=== PATIENT | male | born 1975 | race Caucasian/White ===

== ENCOUNTER → 2016-06-23 | Outpatient (CLI) | payer OTHER ==
--- NOTE | 2016-06-24 06:42 | SPLIT NIGHT TECHNICIAN REPORT ---
[facility] Split Night Polysomnogram - Sprinkler Fitter Apprentice Report Study date: 06/23/2016 Referring Physician: Tony LYMAN M.D. Name: MILY SCHMIDT Sprinkler Fitter Apprentice: ADRIANNA Mccartney. Date of : 1975 Height: 40 years, Height 6' 1.5" Sex: Male Weight: 314 lbs Age: 40 BMI: Medications: 40.86 NONE LISTED Patient History 40 yr-old male here for a baseline/split study. He has a history of HTN, loud snoring, and excessive daytime sleepiness. The test was started on room air. Room 3 Parameters Monitored NPSG: E1-M2, E2-M1, Fp1-M2, Fp2-M1, F3-M2, F4-M2, F4-M1, C3-M2, C4-M2, C4-M1, O1-M2, O2-M2, O2-M1, T3-M2, T4-M1, P3-M2, P4-M1, CHIN1, CHIN2, HR, EKG, Legs, PFLOW, SNOR, FLOW, CFLOW, Tidal Volume, THOR, ABDO, SpO2, PLTH, CPRESS, ETCO2 Wave, ETCO2, pH SLEEP SUMMARY DATA DIAGNOSTIC TREATMENT Lights Out: 10:16:59 PM 1:21:29 AM Lights On: 12:42:29 AM 5:38:29 AM Total Recording Time (TRT): 145.5 min. 257.0 min. Total Sleep Time (TST): 127.0 min. 182.0 min. NREM Time: 125.5 min. 109.5 min. REM Time: 1.5 min. 72.5 min. Sleep Period Time (SPT): 135.5 min. 217.0 min. Sleep Efficiency (SE): 87 % 71 % Sleep Latency: 10.0 min. 38.5 min. Arousal Index: 73.7 8.2 PAP Treatment Levels: 4, 6, 7, 8, 9 * Optimal Pressure(s) SLEEP STAGING DATA DIAGNOSTIC TREATMENT Duration (min) TST % Duration (min) TST % Stage Wake: 18.5 min. -- 75.0 min. -- WASO: 8.5 min. -- 35.0 min. -- NREM: 125.5 min. 99 % 109.5 min. 60 % Stage N1: 64.0 min. 50 % 21.5 min. 12 % Stage N2: 61.5 min. 48 % 88.0 min. 48 % Stage N3: 0.0 min. 0 % 0.0 min. 0 % REM: 1.5 min. 1 % 72.5 min. 40 % POSITIONAL DATA Event Count Index Event Count Index Supine: N/A N/A 5 3.8 Supine NREM: N/A N/A 5 5.5 Supine REM: N/A N/A 0 0 Non-Supine: 216 101.6 18 8.1 Non-Supine NREM: 215 102.3 18 15.3 Non-Supine REM: 1 40.0 0 0.0 AROUSAL SUMMARY DATA: Event Count Index Event Count Index Apnea Arousals: 123 78.9 0 0.0 Hypopnea Arousals: 21 9.9 6 2.0 Snore Arousals: 6 2.8 11 3.6 PLM Arousals: 2 0.9 6 2.0 Non-Specific Arousals: 2 0.9 1 0.3 Total Arousals: 156 73.7 25 8.2 MYOCLONUS (PLM) Event Count Index Event Count Index PLM: 27 12.8 317 104.5 PLM AROUSAL: 2 0.9 6 2.0 PLM W/O AROUSAL 27 12.8 311 102.5 PLM W/RESP EVENT 7 0.0 5 0.0 MYOCLONUS (PLM) Event Count Index Event Count Index LM: 5 81.7 33 10.9 LM AROUSAL: 5 2.4 1 0.3 LM W/O AROUSAL LM W/RESP EVENT LM NON SPECIFIC 61 28.8 335 110.4 HEART RATE DATA DIAGNOSTIC TREATMENT Sleep (bpm): 96 93 REM (bpm): 72 90 NREM (bpm): 86 91 Tachycardia Count: 0 0 Tachycardia Duration: 0.00 0 Bradycardia Count: 0 0 Bradycardia Duration: 0.00 0 DIAGNOSTIC PORTION TREATMENT PORTION RESPIRATORY DATA Event Count Index Event Count Index AHI: -- 101.6 -- 6.3 RDI: -- 102.0 -- 8 Obstructive Apnea: 166 78.4 0 0.0 Central Apnea: 1 0.5 0 0.0 Mixed Apnea: 0 0.0 0 0.0 Hypopnea: 48 22.7 19 6.3 RERA: 1 0.5 4 1.3 Total Apneas: 167 78.9 0 0.0 RESPIRATORY DATA REM NREM SLEEP REM NREM SLEEP Supine Position: Obstructive Apneas: N/A N/A N/A 0 0 0 Central Apneas: N/A N/A N/A 0 0 0 Mixed Apneas: N/A N/A N/A 0 0 0 Hypopneas: N/A N/A N/A 0 5 5 RERA N/A N/A N/A 0 0 0 Total Supine Events: N/A N/A N/A 0 5 5 Supine AHI: N/A N/A N/A 0 5.5 3.8 Supine RDI: N/A N/A N/A 0.0 5.5 3.8 REM NREM SLEEP REM NREM SLEEP Non-Supine Position: Obstructive Apneas: 1 165 166 0 0 0 Central Apneas: 0 1 1 0 0 0 Mixed Apneas: 0 0 0 0 0 0 Hypopneas: 0 48 48 0 14 14 RERA 0 1 1 0 4 4 Total Supine Events: 1 215 216 0 18 18 Supine AHI: 40.0 102.3 101.6 0.0 15.3 8.1 Supine RDI: 40.0 102.8 102.0 0.0 19.6 10.4 OXYGEN DESTAURATION DATA: Event Count Index Event Count Index REM Desaturations: 1 40.0 0 0.0 NREM Desaturations: 200 95.6 29 15.9 SNORE DATA DIAGNOSTIC TREATMENT Snore Time: 33.9 1:59:59 AM Snore TST%: 15 7 Snore Arousal Count: 6 11 Snore Arousal Index: 2.8 3.6 Desaturation Event Summary: Minimum %SpO2 Event Count Mean/Min/Max Duration(sec.) Desaturation Index % Time In Bed > 90 228 23.6 / 5.5 / 60.0 62.0 55.2 86 - 90 82 22.4 / 5.5 / 54.3 40.0 30.8 81 - 85 8 25.9 / 6.8 / 44.5 16.5 7.3 76 - 80 3 25.9 / 13.5 / 41.8 11.8 3.8 71 - 75 0 N/A 0.0 1.7 66 - 70 0 N/A 0.0 0.8 61 - 65 0 N/A 0.0 0.3 56 - 60 0 N/A 0.0 0.0 51 - 55 0 N/A 0.0 0.0 < 50 0 N/A 0.0 0.0 OXYGEN SATURATION DATA DIAGNOSTIC TREATMENT SpO2 Mean Sleep: 86 % 91 % SpO2 Mean REM: 72 % 90 % SpO2 Mean NREM: 86 % 91 % SpO2 Minimum Sleep: 59 % 85 % SpO2 Minimum REM: 60 % 87 % SpO2 Minimum NREM: 59 % 85 % Time Below 90% (TST): 83.4 37.7 Time Below 88% (TST): 69.5 2.4 Total REM NREM Awake <50% 0.0 min. 0.0 min. 0.0 min. 0.0 min. 51 - 60% 0.2 min. 0.0 min. 0.1 min. 0.0 min. 61 - 70% 4.6 min. 0.7 min. 3.5 min. 0.5 min. 71 - 80% 22.1 min. 0.5 min. 21.3 min. 0.3 min. 81 - 90% 152.1 min. 41.5 min. 100.0 min. 10.6 min. 91 - 100% 220.5 min. 31.2 min. 107.6 min. 81.8 min. Average 90 90 88 93 Minimum SpO2 59 60 59 59 Desaturation Event Index 38.8 0.8 58.5 19.9 # Desat. Events below 89% 220 1 204 15 Time(%) with Saturation below 89% 22.7 1.2 20.3 1.2 Time(min.) with Saturation below 89% 90.5 4.6 81.2 4.7 Recording Sprinkler Fitter Apprentice Comments: Mr. Schmidt slept in the right and supine positions. Cardiac arrhythmias were noted (please refer to the printouts). PLMs were noted. No bruxism noted. Snoring was noted and scored as a 4 on a scale of 1 through 5. (0=no snoring, 5=snoring loud enough to be heard through a closed door or down the cotto way). At 12:42 am, he met specific Split-Night criteria during the diagnostic portion of this study. CPAP was initiated at +4 CMH2O and up-titrated to a level of +9 CMH2O, Cflex 2 which nearly eliminated all respiratory events and snoring. A Mirage FX Soft edge nasal mask size standard from [employer] was used during titration. He awoke to use the restroom one time during the night. Mr. Schmidt stated that he slept about the same as usual. The final report will be interpreted and signed by a sleep physician. The completed physician report will then be placed in the patient medical record. Therapy Event: Therapy (cm H20) 0 4 6 7 8 9 Total Time at Pressure (min.) 145.5 44.3 32.2 24.6 66.1 89.7 TST at Pressure (min.) 127.0 5.3 12.7 24.6 63.1 76.2 # Periods 1 1 1 1 1 1 Sleep Onset (min.) 10.0 38.5 0.0 0.0 0.0 0.0 REM Onset (min.) 114.5 N/A N/A N/A 2.8 51.7 Sleep Efficiency % 87 12 39 100 95 85 Wakefulness (%) 12.7 88.0 60.5 0.0 4.5 15.0 Wakefulness (min.) 18.5 39.0 19.5 0.0 3.0 13.5 NREM 1 (%) 44.0 12.0 25.3 0.0 7.6 3.3 NREM 1 (min.) 64.0 5.3 8.2 0.0 5.0 3.0 NREM 2 (%) 42.3 0.0 14.1 100.0 14.5 54.9 NREM 2 (min.) 61.5 0.0 4.6 24.6 9.6 49.2 NREM 3 (%) 0.0 0.0 0.0 0.0 0.0 0.0 NREM 3 (min.) 0.0 0.0 0.0 0.0 0.0 0.0 REM (%) 1.0 0.0 0.0 0.0 73.4 26.8 REM (min.) 1.5 0.0 0.0 0.0 48.5 24.0 # Arousals 156 5 7 1 8 4 Arousal Index 73.7 56.2 33.1 2.4 7.6 3.1 # Snore 916 24 65 221 176 15 Snore Index 432.8 269.5 306.9 538.1 167.4 11.8 AHI 101.6 67.4 37.8 0.0 2.9 1.6 AHI Supine N/A N/A 66.7 N/A N/A 0.0 AHI Non-Supine 101.6 67.4 21.9 0.0 2.9 54.4 NREM AHI 102.3 67.4 37.8 0.0 12.3 2.3 REM AHI 40.0 N/A N/A N/A 0.0 0.0 RDI 102.0 78.6 42.5 0.0 4.8 1.6 # Obstructive 166 0 0 0 0 0 # Central Ap 1 0 0 0 0 0 # Mixed 0 0 0 0 0 0 # Hypopneas 48 6 8 0 3 2 RERAS 1 1 1 0 2 0 Total Respiratory Events 216 7 9 0 5 2 Time Below SpO2 89.00% (min.) 76.2 0.6 3.3 2.6 3.1 0.0 Mean NREM SpO2 (%) 86 91 90 90 92 93 Mean REM SpO2 (%) 72 N/A N/A N/A 90 92 Mean Sleep SpO2 (%) 86 91 90 90 90 92 Min NREM SpO2 (%) 59 87 85 87 89 90 Min REM SpO2 (%) 60 N/A N/A N/A 87 90 Position Supine (min.) 0.0 0.0 4.5 0.0 0.0 74.0 Position Non-supine (min.) 127.0 5.3 8.2 24.6 63.1 2.2 LM Index Sleep 94.5 44.9 33.1 172.9 101.7 126.8 LM Index NREM 94.2 44.9 33.1 172.9 205.5 151.7 LM Index REM 120.0 N/A N/A N/A 70.5 72.5 Mean Heart Rate (bpm) 96 99 99 98 92 91 Min Heart Rate (bpm) 45 94 92 73 46 76
--- NOTE | 2016-07-03 07:48 | POLYSOMNOGRAPH REPORT ---
REFERRING PERSON: Dr. Catherine Rincon. ELEMENTARY SUBSTITUTE TEACHER: Trinidad Zheng. Mr. Schmidt is a 40-year-old male sent for a baseline split night sleep study. He has a history of hypertension, loud snoring and excessive daytime sleepiness. His Lucien Sleepiness Scale score on the evening of this study is not listed. BMI is 40.86. Following the technical and digital specifications of the [employer] (AASM) a standard diagnostic polysomnogram was performed monitoring EEG, EOG, EMG (chin and leg deviations), oxygen saturation, body position, digital video, respiratory effort and airflow. The sleep Stage and event scoring was based on the AASM Manual for the Scoring of Sleep and Associated Events 2007 edition. Apneas are defined as a drop in the peak thermal sensor excursion by >90% of baseline for at least 10 seconds. Hypopneas were scored using the 4% oxygen desaturation rule (4A-[employer]ic[employer]) and a decrease in the nasal pressure excursions by >30% of baseline for at least 10 seconds. Respiratory effort-related arousal (RERA's) is defined as a sequence of breaths lasting at least 10 seconds characterized by increasing respiratory effort or flattening of the nasal pressure waveform leading to an arousal from sleep when the sequence of breaths does not meet criteria for an apnea or hypopnea. Apnea Hypopnea index (AHI) is defined as the number of apneas and hypopneas occurring in an hour of sleep. Respiratory disturbance index (RDI) is defined as the number of apneas, hypopneas, and RERA's occurring in an hour of sleep. Mr. Schmidt' did in fact qualify for a split night sleep study. He was observed for 127 minutes of sleep. During that time, he had 50% N1 sleep, 48% N2 sleep, and 1% REM sleep. There were 156 cortical arousals from sleep. Two of these arousals were nonspecific, 2 were due to periodic limb movements of sleep, 6 due to snoring, and the remaining 144 arousals were due to respiratory events. There were 27 periodic limb movements, 2 of which resulted in arousals. Mean saturation during the diagnostic portion of this test was low at 86%. With the respiratory events, desaturations were noted to 59%. During the diagnostic portion of this study, he had 166 obstructive apneas, 1 central apnea and 0 mixed apneas. He had 48 hypopneas. Pretreatment AHI was 101.6 consistent with severe obstructive sleep apnea. Therefore, at 12:45 a.m., this patient was started on CPAP therapy. Over the remainder of the night using a Mirage FX nasal mask, Mr. Schmidt was titrated from a CPAP pressure of 4 to a CPAP pressure of 9. Increasing pressures were needed to prevent apneas, hypopneas and arousals. He was observed on a pressure of 9 for 76.2 minutes of sleep time. 24 of those minutes were spent in REM sleep. AHI and RDI on this pressure were both 1.6. There were no desaturations less than 89% on this pressure. All sleep time on this pressure was spent supine. IMPRESSION AND PLAN: Successful split night sleep study in this patient with very severe sleep apnea and nocturnal hypoxemia. 1. He appears to do well on CPAP at a pressure of 9. This seems to eliminate his apnea as well as his hypoxemia. He should be started on CPAP of 9 at home. A download from his machine should be reviewed in 1 month both to check compliance as well as apnea-hypopnea index and further pressure adjustments can occur at that time. ANAND
== END | disposition home or self-care (01) ==
LOC: C.NEUR 21:00
PROVIDERS: ATTEND Family Medicine
DX: E66.01 Morbid (severe) obesity due to excess calories (principal); R06.83 Snoring; Z86.79 Personal history of other diseases of the circulatory system

== ENCOUNTER → 2018-01-10 | Outpatient (CLI) | payer BC ==
--- NOTE | 2018-01-10 19:03 | DIAGNOSTIC IMAGING REPORT ---
MRI OF THE RIGHT ANKLE WITHOUT IV CONTRAST CLINICAL HISTORY: Achilles tendon injury. COMPARISON STUDY: No priors. TECHNIQUE: MRI of the right ankle is performed utilizing various T1 and T2-weighted sequences in the axial, sagittal, and coronal planes. IV contrast was not administered for this examination. Note that interpretation is suboptimal without plain film correlate. FINDINGS: The Achilles tendon appears thickened with abnormal signal consistent with partial-thickness tear. This is located deep to a cutaneous marker, and the tear is located approximately 2.5 cm above the calcaneal insertion. A screw track is suggested in the dorsal calcaneus. No full-thickness rupture is seen and there is no retraction. There is nonspecific edema deep to the tear within Kager's fat pad. There is trace fluid within the retrocalcaneal bursa. No osseous abnormality is identified in the ankle. There is no MRI evidence of fracture. No osteochondral defect is seen in the talar dome. The medial band of the plantar fascia appears slightly thickened and there is minimal surrounding edema suggesting mild plantar fasciitis. The peroneus longus tendon appears thickened with abnormally increased signal consistent with partial thickness tearing. There is associated tenosynovitis. The peroneus brevis tendon appears intact noting tendinopathy. There is chronic appearing tearing of the anterior talofibular and tibiofibular ligaments. The deltoid and spring ligaments appear intact. The regional musculature is normal in bulk and signal intensity. Mild subcutaneous soft tissue edema is present around the ankle. There is no ankle joint effusion. Normal fat is maintained within the sinus tarsi. IMPRESSION: 1. There is tendinopathy with partial-thickness tearing of the Achilles tendon. There is no full-thickness rupture or musculotendinous retraction. 2. There is associated edema within Kager's fat pad and trace fluid within the retrocalcaneal bursa. 3. Findings suggest mild plantar fasciitis involving the medial bundle of the plantar fascia. Clinical correlation will be required. 4. There is tendinopathy with partial thickness tearing and tenosynovitis involving the peroneus longus tendon. There is also mild tendinopathy of the peroneus brevis tendon. 5. No osseous abnormality is identified at the ankle joint. 6. There is age indeterminant and likely chronic tearing of the anterior tibiofibular and the anterior talofibular ligaments. Dictated: 01/10/2018 6:24 PM Transcribed: 01/10/2018 7:02 PM MICHAEL_Danielle Electronically signed by: Efren Coughlin M.D. 01/10/2018 7:26 PM Dictated Date/Time: 01/10/2018 6:24 PM
== END | disposition home or self-care (01) ==
LOC: C.MRI 17:02
PROVIDERS: ATTEND Podiatrist
DX: S86.011A Strain of right Achilles tendon, initial encounter (principal); X58.XXXA Exposure to other specified factors, initial encounter; M77.9 Enthesopathy, unspecified; R60.9 Edema, unspecified